=== PATIENT | female | born 1985 | race Caucasian/White ===

== ENCOUNTER 2017-08-08 11:54 | Outpatient (CLI) | payer SELFPAY ==
[~2017-08-08] VITALS: Ht 170.2 cm; Wt 65.4 kg
[2017-08-08 12:13] VITALS: Ht 170.2 cm; Wt 65.4 kg
[2017-08-08 12:14] VITALS: BP 122/84; PULSE 101; RESP 20
[2017-08-08 12:27] LABS: ADD UMIC YES; UR ASCORBIC ACID NEGATIVE (NEGATIVE); UR BACTERIA FEW /HPF (NONE SEEN); UR BILIRUBIN (Dip) NEGATIVE (NEGATIVE); UR BLOOD (Dip) NEGATIVE (NEGATIVE); UR CLARITY SLIGHTLY CLOUDY (CLEAR); UR COLOR YELLOW (YELLOW); UR GLUCOSE (Dip) NEGATIVE (NEGATIVE); UR KETONES (Dip) NEGATIVE (NEGATIVE); UR LEUKOCYTE ESTERASE (Dip) TRACE Leu/ul (NEGATIVE); UR MUCUS FEW /HPF (NONE SEEN); UR NITRITE (Dip) NEGATIVE (NEGATIVE); UR RBC 1 /HPF (0-5); UR SPECIFIC GRAVITY (Dip) 1.012 (1.003-1.030); UR SQUAMOUS EPITHELIAL CELL MODERATE /HPF (FEW); UR TOTAL PROTEIN (Dip) NEGATIVE (NEGATIVE); UR UROBILINOGEN (Dip) NEGATIVE (NEGATIVE)
--- NOTE | 2017-08-08 13:17 | RADRPT ---
PROCEDURE: OB ultrasound for biophysical profile CLINICAL INDICATION: Poor tone. TECHNIQUE: Multiple sonographic images of the pelvis were obtained. Transabdominal views of the g ravid uterus are available for review. The images were reviewed on a PACS workstation. COMPARISON: None FINDINGS: breathing movement = 2/2 tone = 2/2 motion = 2/2 HANNA = 2/2 HANNA = 10.4 cm Single live intrauterine with cardiac activity of 129 bpm. position is cephal ic. The placenta is posterior. IMPRESSION: 1. Single live intrauterine gestation. 2. Biophysical profile = 8/8. 3. HANNA = 10.4 cm. RPTAT: HH .Emily Parrish MD, MD Date Time Electronically viewed and signed by .Emily Parrish MD, on 08/08/2017 13:17 .G/
--- NOTE | 2017-08-08 13:22 | RADRPT ---
PROCEDURE: Obstetrical ultrasound CLINICAL INDICATION: Labor TECHNIQUE: Multiple sonographic images of the pelvis were obtained. The images were reviewed on a PACS workstation. COMPARISON: None FINDINGS: The cervix is closed with a length of 2.7 cm. There is a single viable intrauterine gestation. Cardiac activity is present with 174 beats per minute. There is a vertex presentation. The placenta is posterior and fundal in location. There is no evidence for an abruption or placenta previa. There is a subjectively normal amount of amniotic fluid. Measurements were made in order to determine age. The results are as follows (cm): BPD =8.51 HC =13.60 AC =31.88 FL =6.60 Estimated gestational age by ultrasound of approximately 34 weeks, 4 days. The estimated date of delivery by ultrasound is 09/15/2017. Estimated gestational age by LMP of approximately 33 weeks, 2 days. The estimated date of delivery by LMP is 09/24/2017. EFW = 2563 grams (88th percentile) IMPRESSION: Single viable intrauterine gestation of approximately 34 weeks, 4 days . The estimated date of delivery is 09/15/2017 . Dating by ultrasound is within 9 days of dating by LMP. Elevated heart rate of 174 beats per minute. Cephalic presentation. Estimated weight is in the 88th percentile. Subjectively normal amount of amniotic fluid. The cervix is closed and measures 2.7 cm in length. RPTAT: EE Physician Kj Date Time Electronically viewed and signed by Physician Kj on 08/08/2017 13:22 /
[2017-08-08] MEDS ORDERED: PREN1TAB91 PO (14:10)
--- NOTE | 2017-08-08 19:57 | TRIAGE ---
OB Triage Datetime Report Generated by CPN: 08/08/2017 19:57 Datetime: 08/08/2017 14:18 Labor Evaluation Frequency: IRREG Monitor Mode: External Duration (sec)2399: 50-90 Quality: Mild Pattern: Normal: <= 5 Contractions in 10 Minutes Resting Tone Goss: Relaxed Heart Rate FHR Baseline Rate: 135 Monitor Mode: External US Variability: Moderate 6-25 bpm Accelerations: 15X15 Decelerations: None Category: Category I Datetime: 08/08/2017 13:17 Labor Evaluation Frequency: 0 Monitor Mode: External Duration (sec)2399: 0 Resting Tone Goss: Relaxed Heart Rate FHR Baseline Rate: 135 Monitor Mode: External US Variability: Moderate 6-25 bpm Accelerations: 15X15 Decelerations: None Category: Category I Datetime: 08/08/2017 12:13 Assessment Type: Triage Maternal Assessment Level of Consciousness: Fully Conscious DTR's/Clonus: DTRs 2+; No Clonus Headache: Denies Blurred Vision: No Respiratory Effort: Unlabored; Regular Rhythm; Equal Expansion Breath Sounds, Left: Clear and Equal Breath Sounds, Right: Clear and Equal Nausea/Vomiting: Denies RUQ Epigastric Pain: Denies Facial Edema: None Fall Risk Assessment History of Falling: (0) No Secondary Diagnosis: (0) No Ambulatory Aid: (0) Bedrest/Nurse Assist IV Therapy: (0) No Gait: (0) Normal/Bedrest/Immobile Mental Status: (0) Oriented to Own Ability Fall Score: 0 Fall Risk Score Definition: No Risk: No action required Datetime: 08/08/2017 12:12 Stage of : OB Triage Assessment Type: Triage Maternal Assessment Level of Consciousness: Fully Conscious DTR's/Clonus: DTRs 2+; No Clonus Headache: Denies Blurred Vision: No Respiratory Effort: Unlabored; Regular Rhythm; Equal Expansion Breath Sounds, Left: Clear and Equal Breath Sounds, Right: Clear and Equal Nausea/Vomiting: Denies RUQ Epigastric Pain: Denies Lower Extremities Edema: None Degree: None Upper Extremities Edema: None Degree: None Facial Edema: None Temperature Route: Axillary Fall Risk Assessment History of Falling: (0) No Secondary Diagnosis: (0) No Ambulatory Aid: (0) Bedrest/Nurse Assist IV Therapy: (0) No Gait: (0) Normal/Bedrest/Immobile Mental Status: (0) Oriented to Own Ability Fall Score: 0 Fall Risk Score Definition: No Risk: No action required Pain Assessment Pain Scale: 0 Pain Presence: None/Denies Pain Type: N/A Datetime: 08/08/2017 12:09 Time of Arrival: 08/08/2017 11:50 EGA: 33.2 Arrived By: Ambulatory Arrived From: Home Chief Complaint: SPOTTING HER MD ADVISED PT TO COME TO CLOSEST OB TRIAGE UNIT. PT REPORTS RECENT SEX, NO PAIN 0/10 Movement: Present Contractions: Denies/Absent Rupture of Membranes: Denies Vaginal Bleeding: Scant Vaginal Discharge: Denies Recent Sexual Intercouse: Yes Abdominal Trauma: Not Applicable Patient Complaints: Other Additional Patient Complaints: PT GOES TO [facility] Time Provider Notified: 08/08/2017 12:08 Provider Notified: DR. JUNG Initial Plan: SVE, FFN, EFW, PLACENTA, BPP
--- NOTE | 2017-09-04 14:42 | PN ---
Triage Information Date/Time Reason for visit: Vag spotting / bleeding Weeks of Gestation 33+ /Para --- Diabetes: none Hypertention: none Objective Heart Rate: 140's Contractions: None Disposition: Discharge Assessment/Plan No Vaginal bleeding BPP 05/13 Discharged with precautions Follow up with provider MALLORY JUNG M.D. Sep 04, 2017 14:42
== END 2017-08-08 14:27 | disposition home or self-care (01) ==
LOC: L-D 11:54 → OBT 11:54
PROVIDERS: ATTEND Obstetrics & Gynecology
DX: O26.853 Spotting complicating pregnancy, third trimester (principal); Z3A.33 33 weeks gestation of pregnancy
CPT/HCPCS: 76815; 76817; 76818; 81001; 82731; G0463